=== PATIENT | male | born 1990 | race Caucasian/White ===

== ENCOUNTER 2021-02-03 03:47 | Emergency (ER) | payer OTHER ==
[~2021-02-03] VITALS: Ht 188 cm; Wt 136.0 kg
[2021-02-03 04:07] VITALS: BP 140/94
== END 2021-02-03 07:26 | disposition left against medical advice (07) ==
LOC: ER 03:49
DX: R10.84 Generalized abdominal pain (principal); Z53.21 Procedure and treatment not carried out due to patient leaving prior to being seen by health care provider